=== PATIENT | female | born 1960 | race Caucasian/White ===

== ENCOUNTER → 2020-06-14 | Outpatient (CLI) | payer OTHER ==
[~2020-06-14] MED LIST: ASPIR 8181 MG PO; CALCIUM 600 +1 EAC1 PO; LIPITOR 20 MG T20 M1 PO; LISINOPRIL-HCT1 EAC1 PO; METFORMIN HCL500 M3 PO; NORCO 5-325 TA1 EAC1 PO; NORCO 5-325 TA1 EACH PO; OMEPRAZOLE 20 M20 M1 PO; PRAVASTATIN SOD20 MG PO; PRILOSEC20 MG PO; PROTONIX40 MG PO; ROSUVASTATIN CA20 MG PO; UNICOMPLEX M TA1 TA1 PO; VITAMIN D3400 UNIT PO
--- NOTE | 2020-07-12 08:38 | PAINCON ---
[address] [address] PAIN MANAGEMENT CONSULTATION Name: JUAN A HUFFMAN Room: [facility]#: [id number] Admission: 06/14/20 Attend Phys: Bashir Browne MD Discharge: Date of : 64 Report #: [id number] THIS REPORT FOR: //name// cc: Chiquita Lima Anna S. DO ~ THIS REPORT FOR: //name// CC: Chiquita Browne DATE OF SERVICE: 06/14/2020 CHIEF COMPLAINT: Low back and leg pain. HISTORY: The patient is a 59-year-old female who has been referred to the pain clinic for evaluation of back and leg pain. She is experiencing pain radiating down in the lower portion of her back involving her hips and middle of low back. This began in 04/2019. Pain was primarily on the left side, but has now moved to the right side as well. She notes numbness in the lateral portion of her thigh and has pain that radiates down into her feet. She has tried physical therapy with no long-term benefit. She did undergo a muscle injection to the affected area. She did not notice a long-term benefit from that. She rates her pain as an 8/10. She is using Celebrex and ibuprofen to help with control the pain. She notes that the pain is worse with walking, sitting, standing, climbing, lifting and bending. She has tried heat as well as ice. This is impacting her ability to engage in activities of daily living. She denies any bowel or bladder dysfunction. She does have type 2 diabetes. ALLERGIES: PENICILLIN. CURRENT MEDICATIONS: Celebrex 200 mg, Singulair 10 mg, metformin 1000 mg b.i.d., alprazolam 5 mg, Rosuvastatin 20 mg, omeprazole 20 mg, and lisinopril/hydrochlorothiazide 20/12.5. PAST MEDICAL HISTORY: Kidney stones, anxiety, diabetes mellitus, obesity, GERD, hyperlipidemia, and hypertension. PAST SURGICAL HISTORY: Appendectomy in , ____ hysterectomy in 2010, renal stone removal. 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 REVIEW OF SYSTEMS: Generally good health, fever, night sweats, otherwise unremarkable. LABORATORY DATA: MRI of the lumbar spine dated on 05/22/2020, [facility]; [place] [address] PAIN MANAGEMENT CONSULTATION Name: JUAN A HUFFMAN [facility] [id number] Admission: 06/14/20 Attend Phys: Bashir Browne MD Discharge: Date of : 64 Report #: [id number] 1. L2-L3 mild right neural foraminal stenosis. 2. L3-L4 minimal right neural foraminal narrowing. 3. L4-L5 mild central spinal stenosis, mild bilateral neural foraminal stenosis. 4. L5-S1 mild central spinal stenosis in the left lateral recess stenosis, mild left and minimally right neural foraminal stenosis. PAIN CLINIC ASSESSMENT AND PQRS: 1. History of osteoarthritis. The patient has some osteoarthritic changes in the low back area. 2. Rheumatoid arthritis. The patient is not being treated for rheumatoid arthritis. 3. Height 5 feet 3 inches, weight 199 pounds, BMI is 35.3. 4. Vital Signs: Blood pressure is 124/54, heart rate 67, respiratory rate 16, room air saturation 94% and temperature 98.1. 5. Pain intensity is 8/10. 6. Fall history: The patient has not fallen in the last 3 months. 7. Blood thinner. The patient is not on a blood thinning medication. 8. Hypertension. The patient is being treated for hypertension. 9. Opioids greater than 6 weeks. The patient is not on an opioid regimen. 10. Risk assessment tool, low for opioid use. 11. Functional assessment tool reviewed. 12. Recreational drug use. The patient denies. 13. Tobacco: The patient denies. 14. Alcohol. The patient denies frequent use of alcoholic beverages. PHYSICAL EXAMINATION: GENERAL: The patient is a well-developed, well-nourished white female. Appears her stated age. She is alert and oriented x 3. Her affect is appropriate. Speech is fluent. HEENT: Normocephalic, atraumatic. Extraocular eye muscles intact. Sclerae nonicteric. Mucous membranes are moist. The patient is wearing a mask. HEART: Regular rate. LUNGS: Clear. ABDOMEN: Nontender. EXTREMITIES: Upper extremity muscle strength judged to be 5/5 for the major muscle groups in the upper extremity. The patient without significant scoliosis, kyphosis or lordosis. The patient has some pain and discomfort in the lower portion of her back with pain that is radiating down the left as well as the right lumbar area in the L5-S1 and L4-L5 dermatomal distribution. IMPRESSION: 1. Lumbar radiculopathy with radicular pain in the left and right posterior superior iliac spine area as well as in the L5-S1 dermatomal distribution. 2. Kidney stones. 3[place] [address] PAIN MANAGEMENT CONSULTATION Name: JUAN A HUFFMAN Room: [facility]#: [id number] Admission: 06/14/20 Attend Phys: Bashir Browne MD Discharge: Date of : 64 Report #: [id number] 4. Diabetes mellitus. 5. Obesity. 6. Gastroesophageal reflux disease. 7. Hyperlipidemia. 8. Hypertension. RECOMMENDATIONS: We discussed treatment options with the patient. At this juncture, we will proceed with an epidural steroid injection. Risks and benefits of the procedure had been discussed. A model was used to indicate the area of probable pathology. The patient states that she understands. We would like to thank you for letting us participate in her care. We hope she continues to improve. <ELECTRONICALLY SIGNED> By: Bashir Browne MD 07/12/20 [id number]. Magno Browne MD /nt
== END ==
LOC: M.PC 07:42
PROVIDERS: ATTEND Anesthesiology Pain Medicine
DX: M54.16 Radiculopathy, lumbar region (principal); M79.605 Pain in left leg; N20.0 Calculus of kidney; F41.9 Anxiety disorder, unspecified; E11.9 Type 2 diabetes mellitus without complications; E66.9 Obesity, unspecified; K21.9 Gastro-esophageal reflux disease without esophagitis; E78.5 Hyperlipidemia, unspecified; I10 Essential (primary) hypertension; Z88.8 Allergy status to other drugs, medicaments and biological substances; Z79.899 Other long term (current) drug therapy

== ENCOUNTER → 2020-06-28 | Outpatient (CLI) | payer OTHER ==
--- NOTE | ~2020-06-28 | PAINCON ---
[address] [address] PAIN MANAGEMENT CONSULTATION Name: JUAN A HUFFMAN Room: [facility]#: [id number] Admission: 06/28/20 Attend Phys: Bashir Browne MD Discharge: Date of : 64 Report #: [id number] THIS REPORT FOR: //name// cc: Chiquita Lima Anna S. DO ~ THIS REPORT FOR: //name// CC: Chiquita Browne DATE OF SERVICE: 06/28/2020 CHIEF COMPLAINT: Low back and leg pain. HISTORY: The patient is a 59-year-old female who has been seen in the pain clinic because of lumbar radiculopathy. She returns today for an epidural steroid injection. She has been experiencing pain in the low back area. Pain radiates down the lower portion of her back and hips. Pain became problematic again in 2019. She has returned today with hopes of undergoing an epidural steroid injection. ALLERGIES: PENICILLIN. CURRENT MEDICATIONS: Celebrex 200 mg, Singulair 10 mg, metformin 1000 mg b.i.d., alprazolam 5 mg, rosuvastatin 20 mg, omeprazole 20 mg, lisinopril/hydrochlorothiazide 20/12.5. PAIN CLINIC ASSESSMENT/PQRS: 1. The patient has a history of osteoarthritis. She is not being treated for rheumatoid arthritis. 2. Height 5 feet 3 inches, weight 201 pounds, BMI is 35. 3. Vital signs: Blood pressure 147/52, heart rate 76, respiratory rate 16, room air saturation 98%, temperature 98.6. PHYSICAL EXAMINATION: The patient has pain and discomfort in lower portion of her back. This pain is radiating down to the L5-S1 dermatomal distribution. IMPRESSION: 1. Lumbar radiculopathy, left and right posterior area. 2. History of kidney stones. 3. Anxiety. 4. Depression. 5. Obesity. 6. Gastroesophageal reflux. PLAN: We discussed the risks and benefits of an [place] [address] PAIN MANAGEMENT CONSULTATION Name: JUAN A HUFFMAN [id number] Admission: 06/28/20 Attend Phys: Bashir Browne MD Discharge: Date of : 64 Report #: [id number] The patient elects to proceed. PROCEDURE NOTE: The patient was taken to the procedure area. She was then assisted in getting on to the examination table. Her back was sterilely prepped with a Betadine solution. A 0.25% bupivacaine was infiltrated at the L5-S1 area. There was no CSF, heme or paresthesia. Fluoroscopy using anterior and posterior viewing were implemented. A total of 80 mg Depo-Medrol, 40 mg triamcinolone and 2 mL of 0.25% bupivacaine was injected. The patient tolerated the procedure well. There were no complications. We would like to thank you for letting us participate in her care. We hope she continues to improve. By: [id number]. Magno Browne MD /PMT
== END | disposition home or self-care (01) ==
LOC: M.PC 12:28
PROVIDERS: ATTEND Anesthesiology Pain Medicine
DX: M54.5 Low back pain (principal); M54.16 Radiculopathy, lumbar region; F41.9 Anxiety disorder, unspecified; F32.9 Major depressive disorder, single episode, unspecified; K21.9 Gastro-esophageal reflux disease without esophagitis; E66.9 Obesity, unspecified; I25.10 Atherosclerotic heart disease of native coronary artery without angina pectoris; Z79.84 Long term (current) use of oral hypoglycemic drugs; Z79.899 Other long term (current) drug therapy